=== PATIENT | male | born 1960 | race African-American/Black ===

== ENCOUNTER 2022-07-13 19:55 | Emergency (ER) | payer SELFPAY ==
[~2022-07-13] VITALS: Ht 172.7 cm; Wt 109.0 kg
[2022-07-13 20:17] VITALS: BP 193/69
== END 2022-07-14 01:09 | disposition left against medical advice (07) ==
LOC: ER 20:32
DX: Z53.21 Procedure and treatment not carried out due to patient leaving prior to being seen by health care provider (principal)